=== PATIENT | female | born 1995 | race Caucasian/White ===

== ENCOUNTER 2017-11-03 19:45 | Emergency (ER) | payer BC, OTHER ==
[~2017-11-03] VITALS: Ht 170.2 cm; Wt 54.0 kg
[~2017-11-03 19:45] MED LIST: HYDR-569 PO
[2017-11-03 20:13] VITALS: BP 133/67
[2017-11-03] MEDS ORDERED: LIDOcaine 1.5% w/epinephrine 1:200,000 5ml ampul IJ ONE (21:20)
[2017-11-03] MEDS ORDERED: CEPH-571 PO (21:44)
== END 2017-11-03 22:17 | disposition home or self-care (01) ==
LOC: ER 19:46
DX: S61.511A Laceration without foreign body of right wrist, initial encounter (principal); W25.XXXA Contact with sharp glass, initial encounter; Y93.89 Activity, other specified; Y92.89 Other specified places as the place of occurrence of the external cause; Y99.8 Other external cause status
CPT/HCPCS: 12002; 12042; 99285; A6222; A6449; J3490; 12032